=== PATIENT | female | born 1980 | race Caucasian/White ===

== ENCOUNTER 2016-09-01 00:12 | Emergency (ER) | payer SELFPAY | END 2016-09-01 02:50 | disposition home or self-care (01) | LOC: ER 00:12 | DX: G43.909 Migraine, unspecified, not intractable, without status migrainosus (principal); E11.9 Type 2 diabetes mellitus without complications; I10 Essential (primary) hypertension; Z98.890 Other specified postprocedural states; F17.210 Nicotine dependence, cigarettes, uncomplicated; Z88.1 Allergy status to other antibiotic agents | CPT/HCPCS: 70450; 81025; 96372; 99070; 99283-25; 99284 ==

== ENCOUNTER 2016-09-23 11:17 | Emergency (ER) | payer SELFPAY | END 2016-09-23 13:48 | disposition home or self-care (01) | LOC: ER 11:17 | DX: S04.52XA Injury of facial nerve, left side, initial encounter (principal); W50.0XXA Accidental hit or strike by another person, initial encounter; Y92.199 Unspecified place in other specified residential institution as the place of occurrence of the external cause; Y99.0 Civilian activity done for income or pay; E11.9 Type 2 diabetes mellitus without complications; I10 Essential (primary) hypertension; F41.9 Anxiety disorder, unspecified; F17.210 Nicotine dependence, cigarettes, uncomplicated; Z79.899 Other long term (current) drug therapy; Z88.1 Allergy status to other antibiotic agents; Z87.442 Personal history of urinary calculi | CPT/HCPCS: 70450; 81025; 99283-25; 99284 ==

== ENCOUNTER 2016-10-11 20:17 | Emergency (ER) | payer SELFPAY | END 2016-10-11 21:23 | disposition home or self-care (01) | LOC: ER 20:17 | DX: S91.112A Laceration without foreign body of left great toe without damage to nail, initial encounter (principal); S91.102A Unspecified open wound of left great toe without damage to nail, initial encounter; W25.XXXA Contact with sharp glass, initial encounter; Y92.524 Gas station as the place of occurrence of the external cause; F17.210 Nicotine dependence, cigarettes, uncomplicated; Z79.3 Long term (current) use of hormonal contraceptives; Z88.1 Allergy status to other antibiotic agents | CPT/HCPCS: 12001; 73620; 90471; 90715; 99070; 99283; 99283-25 ==